=== PATIENT | male | born 1935 | race Caucasian/White ===

== ENCOUNTER → 2017-08-21 | Outpatient (CLI) | payer OTHER ==
[~2017-08-21] MED LIST: ADULT LOW DOSE81 MG PO; COZAAR 50 MG TA50 M1 PO; FINASTERIDE5 MG PO; LORAZEPAM 0.50.5 M1 PO; MELATONIN1 MG PO; NEPHROCAPS SOFT1 CAP PO; NEVANAC3 ML OPHTHALMIC; NORVASC5 MG PO; OCUVITE PRESER1 EACH GTT; PEPCID20 MG PO; PRAVASTATIN SOD20 MG PO; PREDNISOLONE SO10 ML OPHTHALMIC; PREDNISONE 1 MG1 M1 PO; RESTASIS MULTI5.5 ML OPHTHALMIC; SIMBRINZA 1%-0.28 ML OPHTHALMIC; SLOW RELEASE I160 M1 PO; SYMBICORT80 MCG/4.1 INH; TAMSULOSIN HCL0.4 MG PO; VITAMINC500 PO; XALATAN2.5 ML OPHTHALMIC
[2017-08-21 11:07] VITALS: BP 142/63; BP 152/65
[2017-08-21 13:30] VITALS: BP 136/64; BP 142/63; BP 147/64
== END ==
LOC: OPONC 08:58
DX: D64.9 Anemia, unspecified (principal)
CPT/HCPCS: 91030